=== PATIENT | male | born 1950 | race Caucasian/White ===

== ENCOUNTER → 2017-01-17 | Outpatient (CLI) | payer MEDICARE, BC ==
--- NOTE | 2017-01-17 15:13 | KCIC ---
MR of the left ankle HISTORY: Left Achilles tendinitis. TECHNIQUE: Routine multiplanar sequences are obtained. FINDINGS: There appears to be a longitudinal split tear of the peroneus brevis tendon at the lateral malleolus. Peroneus longus tendon is intact. Anterior talofibular ligament, calcaneofibular ligament and posterior talofibular ligament demonstrates scarring, compatible with prior injury. No acute rupture or laxity. Anterior inferior tibiofibular ligament intact. Posterior tibial and flexor tendons are intact. Scarring of the deep fibers of the deltoid ligament without acute tear. Anterior tibial and extensor tendons are intact. Mild thickening of the Achilles tendon. There are several small foci of hyperintense T2 signal compatible with foci of degeneration, measuring no larger than 4 mm each. No measurable tear or rupture. The Achilles insertion is spared. No evidence of acute plantar fasciitis. Subtalar joints are patent. Tarsal sinus is intact. Talar dome is intact. No significant joint effusion. No bone lesion or acute fracture. No abnormal soft tissue fluid collection is identified. Mild subcutaneous edema around the posterior ankle. IMPRESSION: 1. Scarring of the lateral ankle ligaments and medial deltoid ligament compatible with prior injuries. No acute discontinuity or laxity. 2. Mild Achilles tendinosis without acute tear or rupture. 3. 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 Electronically signed by: Chente Sanchez MD (01/17/2017 3:10 PM)
== END | disposition home or self-care (01) ==
LOC: KCIC MRI 14:06
DX: M76.62 Achilles tendinitis, left leg (principal)
CPT/HCPCS: 73721

== ENCOUNTER → 2017-06-23 | Day surgery (SDC) | payer MEDICARE, BC ==
[~2017-06-23] MED LIST: ATOR20TA58 PO; IV RINGERS,LACTATED 1000ML 1,000 ML IV SCH; LIDOCAINE 1% PF 2 ML VIAL. ID PRN; LIDOCAINE 2% PF Vial for OR 5 ML VIAL. ONE; MIDAZOLAM HCL/PF 2 MG/2 ML VIAL. IV PRN; OMEP40CA5 PO; PROPOFOL 40 ML IV ONE; TERB250T8 PO; VALS1TAB22 PO; fentaNYL PF VIAL 100 MCG/2 ML VIAL IV PRN
[2017-06-23 13:01] VITALS: BP 116/66
--- NOTE | 2017-06-24 10:37 | PATHOLOGY ---
PATHOLOGY REPORT * * * * * * * * FINAL DIAGNOSIS: Colon biopsies, transverse colon polyps: - Tubular adenomas (2). (JPM:oswald; 06/24/2017) COMMENT: There is no high-grade dysplasia or evidence of malignancy. REPORT ELECTRONICALLY SIGNED BY: Jeffrey Ibarra M.D. DATE/TIME: 06/24/2017 10:37 * * * * * * * * GROSS PATHOLOGY: Received in formalin labeled "Jeffrey Garza, transverse colon polyp," are 2 segments of do soft tissue measuring 0.6 x 0.3 x 0.1 cm in aggregate dimensions and ranging from 0.3 to 0.3 cm in maximum dimension. The specimen is submitted entirely in cassette A1. (SDY; 06/23/2017) INITIAL CPT CODE(S): A; 53329 Professional services performed by [facility] [place] [address] Technical services performed by [facility] at [address] [place] [address]. SPECIMEN(S) RECEIVED: A.Transverse colon polyps CLINICAL HISTORY: Colon screening PATIENT: JEFFREY GARZA /AGE: 109/04/1950 (Age: 66) PATIENT #: [id number] ALT CASE #: SPECIMEN COLLECTION DATE: 06/23/2017 SPECIMEN RECEIVED DATE: 06/23/2017 [facility] - [address] [place] [address] - PHONE: [phone] * * * END OF REPORT * * *
== END | disposition home or self-care (01) ==
LOC: SURG 10:53
PROVIDERS: ATTEND Internal Medicine Gastroenterology
DX: Z12.11 Encounter for screening for malignant neoplasm of colon (principal); D12.3 Benign neoplasm of transverse colon; K64.0 First degree hemorrhoids; Z80.0 Family history of malignant neoplasm of digestive organs; M19.90 Unspecified osteoarthritis, unspecified site; E78.00 Pure hypercholesterolemia, unspecified; I10 Essential (primary) hypertension; K21.9 Gastro-esophageal reflux disease without esophagitis
CPT/HCPCS: 45380; 88305; J2704; J2001

== ENCOUNTER → 2019-01-31 | Outpatient (CLI) | payer MEDICARE, BC ==
[2017-06-23 13:01] VITALS: BP 116/66
[~2019-01-31] MED LIST changes: -IV RINGERS,LACTATED 1000ML 1,000 ML IV SCH; -LIDOCAINE 1% PF 2 ML VIAL. ID PRN; -LIDOCAINE 2% PF Vial for OR 5 ML VIAL. ONE; -MIDAZOLAM HCL/PF 2 MG/2 ML VIAL. IV PRN; -PROPOFOL 40 ML IV ONE; +TERB250T11 PO; -TERB250T8 PO; -fentaNYL PF VIAL 100 MCG/2 ML VIAL IV PRN
--- NOTE | 2019-01-31 16:40 | KCIC ---
MRI of the lumbar spine without contrast 01/31/2019 CLINICAL HISTORY: Low back pain which radiates down the left leg. TECHNIQUE: Unenhanced T1-weighted and T2-weighted sagittal and axial and inversion recovery sagittal images of the lumbar spine were obtained. FINDINGS: Comparison is made to radiographs of the lumbar spine dated 01/26/2019. Very mild S-shaped curvature of the thoracolumbar spine is seen. Bilateral spondylolysis is seen at L5. Grade 1-2 spondylolisthesis of L5 in relation to S1 is noted. Degenerative signal changes and loss of height are seen involving all of the disks of the lumbar spine. Degenerative signal changes are seen within the marrow surrounding these discs. The conus medullaris is normal morphology, position, and signal characteristics. At the L1-2 disc space there is a mild to moderate generalized disc bulge. Degenerative changes are seen involving the facet joints bilaterally. There is mild ligamentum flavum hypertrophy bilaterally. There are small facet joint effusions. There is prominence of the posterior epidural fat. These findings when combined do not result in significant central spinal canal or neural foraminal stenosis. At the L2-3 disc space there is a mild to moderate generalized disc bulge. Degenerative changes are seen involving the facet joints bilaterally. There is mild ligamentum flavum hypertrophy bilaterally. There is prominence of the posterior epidural fat. These findings when combined result in mild central spinal canal stenosis. Mild right neural foraminal stenosis is seen. The left neural foramen is patent. At the L3-4 disc space there is a mild generalized disc bulge. Superimposed on this disc bulge is a focal central disc protrusion. This measures 2 mm in AP diameter. Degenerative changes are seen involving the facet joints bilaterally. There is mild ligamentum flavum hypertrophy bilaterally. There are small facet joint effusions bilaterally. There is prominence of posterior epidural fat. These findings when combined result in mild central spinal canal stenosis. No neural foraminal stenosis is seen. At the L4-5 disc space there is a mild generalized disc bulge. This is eccentric to the right. Degenerative changes are seen involving the facet joints bilaterally. There is mild ligament flavum hypertrophy bilaterally. These findings when combined do not result in significant central spinal canal stenosis. Mild to moderate bilateral neural foraminal stenosis is seen. At the L5-S1 disc space is a mild generalized disc bulge. Degenerative changes are seen involving the facet joints, left greater than right. These findings when combine with the anterolisthesis do not result in significant central spinal canal stenosis. Severe left greater than right neural foraminal stenosis is seen. IMPRESSION: 1. Bilateral spondylolysis is seen at L5. Grade 1-2 spondylolisthesis of L5-S1 is noted. 2. The changes of degenerative disc disease are seen throughout the lumbar spine. These findings result in mild central spinal canal stenosis at L2-3 and L3-4. Mild right neural foraminal stenosis is seen at L2-3 mild to moderate bilateral neural foraminal stenosis is seen at L4-5. Severe left greater than right neural foraminal stenosis is seen at L5-S1. Electronically signed by: Vinny Ramos MD (01/31/2019 4:37 PM) [email or web address]
== END | disposition home or self-care (01) ==
LOC: KCIC MRI 15:29
DX: M43.17 Spondylolisthesis, lumbosacral region (principal); M51.16 Intervertebral disc disorders with radiculopathy, lumbar region; M48.07 Spinal stenosis, lumbosacral region; M25.48 Effusion, other site; M51.27 Other intervertebral disc displacement, lumbosacral region
CPT/HCPCS: 72148

== ENCOUNTER 2019-03-29 11:33 | Outpatient (CLI) | payer MEDICARE, BC ==
[2019-03-29] MEDS ORDERED: PROPOFOL 50 ML IV ONE (12:55)
[2019-03-29] MEDS ORDERED: MIDAZOLAM HCL/PF 2 MG/2 ML VIAL. ONE ×2 (12:55)
[2019-03-29] MEDS ORDERED: fentaNYL PF VIAL 100 MCG/2 ML VIAL ONE (12:55)
[2019-03-29 14:15] VITALS: BP 147/86
--- NOTE | 2019-03-29 14:26 | RAD ---
MRI Cervical Spine Without Contrast History: Cervical pain, left arm radiculopathy Technique: Multiplanar, multi sequential noncontrast MR imaging was performed of the cervical spine. Comparison: None Findings: Cervical cord caliber is within normal limits without focal signal abnormality. Cervical vertebral body stature is overall maintained. There is some variable mild degenerative endplate change throughout cervical spine. There is very mild amorphous edema of the C6-7 endplates likely reactive/degenerative in etiology. There is mild to moderate degenerative disc disease C5-6 and C6-7, minimally at C3-4. There is negligible posterior subluxation C5 relative to C6. C2-C3: There is a shallow posterior central protrusion 1 to 2 mm AP. Neural foramina and spinal canal are adequate. C3-C4: There is very minimal disc osteophyte complex and bulge. Central canal is adequate about 13 mm. There is mild uncovertebral and facet degenerative change. There is mild narrowing of the left neural foramen, right neural foramen not significantly narrowed. C4-C5: There is minimal disc osteophyte complex and bulge, central canal borderline about 10 mm, minimal narrowing of the lateral recesses greater on the right. There is facet and uncovertebral degenerative change bilaterally. There is moderate to severe narrowing of the left neural foramen, mild narrowing on the right. C5-C6: There is minimal disc osteophyte complex, central canal adequate about 11 mm. There is mild uncovertebral degenerative change greater on the left. There is bilateral facet degenerative change. Right neural foramen is adequate. There is likely moderate narrowing of the left neural foramen. C6-C7: There is minimal disc osteophyte complex and bulge, central canal adequate about 11 mm. There is bilateral facet and uncovertebral degenerative change. There is likely at least moderate narrowing of the left neural foramen, likely moderate to severe narrowing on the right. C7-T1: There is shallow posterior protrusion less than by 2 mm AP. Spinal canal is adequate. Neural foramina are adequate. There is bilateral facet degenerative change. Impression: 1. There is no significant cervical spinal stenosis, borderline narrowing at C4-5. There is degenerative disc disease greatest at C5-6 and C6-7, mild spondylosis. 2. There is facet and uncovertebral degenerative change resulting in suspected multilevel neural foramina compromise although somewhat poorly characterized due to motion. Neural foramina compromise is likely greatest on the left at C4-5 and C5-6 and right greater than left at C6-7. Electronically signed by: Christiano Garcia MD (03/29/2019 2:24 PM) [email or web address]
== END 2019-03-29 14:30 | disposition home or self-care (01) ==
LOC: MRI 11:33
DX: M50.122 Cervical disc disorder at C5-C6 level with radiculopathy (principal); M47.22 Other spondylosis with radiculopathy, cervical region; M48.02 Spinal stenosis, cervical region; M51.24 Other intervertebral disc displacement, thoracic region; M25.78 Osteophyte, vertebrae; Z96.651 Presence of right artificial knee joint
CPT/HCPCS: 72141; J2250; J2704; J3010